=== PATIENT | male | born 1995 ===

== ENCOUNTER 2020-09-28 09:34 | Emergency (ER) | payer BC ==
[~2020-09-28] VITALS: Ht 175.3 cm; Wt 82.6 kg
[2020-09-28] MEDS ORDERED: ONDANSETRON 2MG/ML, 2ML ONE (10:18)
[2020-09-28] MEDS ORDERED: LORazepam 2 MG/ML, 1ML ONE ×2 (10:18→11:01)
[2020-09-28] MEDS ORDERED: SODIUM CHLORIDE FLUSH 10ML SYR IVF ONE (10:30)
[2020-09-28] MEDS ORDERED: ONDANSETRON 2MG/ML, 2ML IVPush ONE (10:30)
[2020-09-28] MEDS ORDERED: LORazepam 2 MG/ML, 1ML IVPush ONE (10:30)
[2020-09-28] MEDS ORDERED: SODIUM CHLORIDE 0.9% 1,000ML IVBOLUS ONE ×2 (10:30→12:30)
[2020-09-28] MEDS ORDERED: THIAMINE 100MG TABLET PO ONE (10:30)
[2020-09-28] MEDS ORDERED: LORazepam 2 MG/ML, 1ML IVPush PRN (10:30)
[2020-09-28 10:33] LABS: BASOPHILS % (AUTO) 1 % (0-1); EOSINOPHILS % (AUTO) 0 % (1-7); LYMPHOCYTES % (AUTO) 17 % (22-44); MEAN CORPUSCULAR HEMOGLOBIN 31.3 pg (27.5-34.5); MEAN CORPUSCULAR HGB CONC 35.1 g/dL (33.2-36.2); MEAN PLATELET VOLUME 7.6 fL (7.4-10.4); MONOCYTES % (AUTO) 7 % (2-9); NEUTROPHILS % (AUTO) 76 % (42-75); PLATELET COUNT 285 x10^3/uL (130-400); RED BLOOD COUNT 5.57 x10^6/uL (4.38-5.82); RED CELL DISTRIBUTION WIDTH 13.1 % (9.4-14.8)
[2020-09-28 10:35] LABS: MD NO
[2020-09-28 10:42] LABS: ALANINE AMINOTRANSFERASE 48 U/L (12-78); ANION GAP 19 mmol/L (5-15); CALCIUM 8.9 mg/dL (8.5-10.1); CHLORIDE 94 mmol/L (98-107); CREATININE 1.31 mg/dL (0.7-1.3)
[2020-09-28 10:44] LABS: ALKALINE PHOSPHATASE 95 U/L (45-117); BILIRUBIN,TOTAL 0.6 mg/dL (0.2-1.0); TOTAL PROTEIN 8.7 g/dL (6.4-8.2)
--- NOTE | 2020-09-28 10:44 | NUR ---
MEDICATED PER ORDERS. PT REPORTS DRINKING 2 PINTS/DAY. LAST DRINK 2 DAYS. PT TACHY AND TREMULOUS. NOT VOMITING. STATES HE THREW UP BLOOD. PIV, LABS, FLUIDS INFUSING.
[2020-09-28] MEDS ORDERED: THIAMINE 100MG TABLET ONE (10:54)
--- NOTE | 2020-09-28 11:19 | NUR ---
break RN note: CIWA score 13, pt medicated with ativan per emar. PO thiamine admin with sip of water, pt tolerated well. all monitors in place, sinus tach rate 130s with no ectopy. call light in reach. bed locked and in lowest position. pt instructed not to get out of bed, educated to utilize call light for any assistance, pt verbalizes understanding. pt a&o, resps even and unlabored, tolerating POs well. report given back to primary RN [facility].
[2020-09-28] MEDS ORDERED: DIAZEPAM 5 MG/ML, 2ML IV ONE (11:30)
[2020-09-28] MEDS ORDERED: DIAZEPAM 5 MG/ML, 2ML ONE (12:11)
--- NOTE | 2020-09-28 12:30 | NUR ---
MEDICATED PER ORDERS. PT GIVEN JUICE. PT TREMULOUS
--- NOTE | 2020-09-28 13:00 | NUR ---
PT TO BE DC. PT FEELING BETTER, LESS TREMULOUS
[2020-09-28] MEDS ORDERED: LORazepam 1MG TABLET ONE (13:29)
[2020-09-28] MEDS ORDERED: LORazepam 1MG TABLET PO ONE (13:30)
[2020-09-28 13:37] VITALS: BP 135/91
--- NOTE | 2020-09-28 13:38 | NUR ---
Patient/Caregiver given discharge instructions and they have confirmed that they understand the instructions. Patient ambulatory with steady gait.
== END 2020-09-28 13:40 | disposition home or self-care (01) ==
LOC: ED 12:19
DX: R11.2 Nausea with vomiting, unspecified (principal); F10.239 Alcohol dependence with withdrawal, unspecified; R10.84 Generalized abdominal pain; Y90.0 Blood alcohol level of less than 20 mg/100 ml
CPT/HCPCS: 36415; 80053; 80320; 83690; 85025; 96361; 96374; 96375; 96376; 99284; J2060; J2405; J3360; J7030; G0480

== ENCOUNTER 2020-10-06 16:18 | Inpatient (IN) | payer OTHER ==
[~2020-10-06] VITALS: Ht 180.3 cm; Wt 87.0 kg
[2020-10-06] MEDS ORDERED: SODIUM CHLORIDE 0.9% 1,000ML IVBOLUS ONE (16:30)
[2020-10-06] MEDS ORDERED: SODIUM CHLORIDE FLUSH 10ML SYR IVF ONE (16:30)
[2020-10-06] MEDS ORDERED: THIAMINE 100 MG in SODIUM CHLORIDE 0.9% 50 ML IVPB ONE (16:30)
[2020-10-06] MEDS ORDERED: SODIUM CHLORIDE 0.9% 1,000 ML IV ONE (16:30)
[2020-10-06] MEDS ORDERED: LORazepam 2 MG/ML, 1ML ONE ×4 (16:42→19:40)
[2020-10-06] MEDS: LORazepam 2 MG/ML, 1ML IVPush PRN ×4 (16:44→19:46)
--- NOTE | 2020-10-06 16:54 | NUR ---
PATIENT HERE WITH ETOH, REPORTS HE DRINKS 1 LITER OF ALCOHOL PER DAY, LAST DRINK 24 HOURS AGO. PATIENT SHAKING, MEDICATED PER eMAR, SIDE RAILS UP X2, SEIZURE PRECAUTIONS IN PLACE. PATIENT CONNECTED TO MONITORS.
[2020-10-06 16:56] LABS: ALANINE AMINOTRANSFERASE 52 U/L (12-78); ALBUMIN 3.3 g/dL (3.4-5.0); ANION GAP 14 mmol/L (5-15); CALCIUM 7.6 mg/dL (8.5-10.1); CHLORIDE 94 mmol/L (98-107); CREATININE 1.13 mg/dL (0.7-1.3)
[2020-10-06 17:09] LABS: ALKALINE PHOSPHATASE 102 U/L (45-117); BILIRUBIN,TOTAL 0.8 mg/dL (0.2-1.0); TOTAL PROTEIN 7.7 g/dL (6.4-8.2)
[2020-10-06 17:13] LABS: BASOPHILS % (AUTO) 1 % (0-1); EOSINOPHILS % (AUTO) 0 % (1-7); LYMPHOCYTES % (AUTO) 23 % (22-44); MEAN CORPUSCULAR HEMOGLOBIN 31.8 pg (27.5-34.5); MEAN PLATELET VOLUME 7.4 fL (7.4-10.4); MONOCYTES % (AUTO) 12 % (2-9); NEUTROPHILS % (AUTO) 64 % (42-75); PLATELET COUNT 342 x10^3/uL (130-400); RED BLOOD COUNT 5.95 x10^6/uL (4.38-5.82); RED CELL DISTRIBUTION WIDTH 13.4 % (9.4-14.8)
[2020-10-06 17:14] LABS: MD NO
--- NOTE | 2020-10-06 17:29 | NUR ---
THIAMINE IV BAG REQUESTED FROM PHARMACY.
--- NOTE | 2020-10-06 17:41 | NUR ---
SPOKE WITH PHARMACY ABOUT THIAMINE BAG REQUEST, PHARMACY WILL SEND MEDICATION NOW. PATIENT REQUESTING MORE ATIVAN.
[2020-10-06] MEDS ORDERED: POTASSIUM CHLORIDE 40 MEQ in SODIUM CHLORIDE 0.9% 500 ML IV ONE (18:00)
[2020-10-06] MEDS ORDERED: POTASSIUM CHLORIDE 20 MEQ TAB.ER.PRT PO ONE ×2 (18:00→21:30)
[2020-10-06] MEDS ORDERED: POTASSIUM CHLORIDE 20 MEQ TAB.ER.PRT ONE (18:06)
--- NOTE | 2020-10-06 18:20 | NUR ---
PATIENT MEDICATED PER eMAR, MORE APPLE JUICE PROVIDED TO PATIENT, NADN, PATIENT SINUS TACH ON MONITOR, OTHER VSS, A&O X4, SIDE RAILS UP X2, SEIZURE PRECAUTIONS IN PLACE, CALL LIGHT WITHIN REACH.
--- NOTE | 2020-10-06 18:46 | NUR ---
REPORT TO WILFREDO RODRIGUEZ FOR TRANSFER OF PATIENT CARE.
--- NOTE | 2020-10-06 19:19 | NUR ---
PATIENT RESTING IN BED IN NAD. ATIVAN ADMINISTERED PRIOR TO PREVIOUS RN LEAVING SHIFT. PATIENT REMAINS TACHYCARDIC. WILL CONTIUE TO MONITOR. SAFETY MAINTAINED. SEIZURE PADS REMAIN ON BED RAILS FOR SAFETY
[2020-10-06] MEDS ORDERED: ONDANSETRON ODT 4 MG PO ONE (20:00)
[2020-10-06] MEDS ORDERED: LORazepam 2 MG/ML, 1ML IVPush PRN (20:00)
--- NOTE | 2020-10-06 20:15 | NUR ---
PATIENT PROVIDED H20 AND APPLE JUICE. PATIENT RESTING IN BED IN NAD. CALL GRIFFIN IN REACH. VS REMAIN STABLE OTHER THAN PATIENT IS CURRENTLY TACHYCARDIC
--- NOTE | 2020-10-06 20:35 | NUR ---
REPOTR GIVEN TO CARI VILLALOBOS ON TELE UNIT
[2020-10-06 21:21] VITALS: BP 140/95
[2020-10-06] MEDS ORDERED: PROMETHAZINE 25MG TABLET PO PRN (21:30)
[2020-10-06] MEDS ORDERED: CHLORDIAZEPOXIDE 25 MG CAPSULE PO PRN ×2 (21:30)
[2020-10-06] MEDS ORDERED: LORazepam 2 MG/ML, 1ML IV PRN (21:30)
[2020-10-06] MEDS ORDERED: FOLIC ACID 5 MG/ML IM ONE (21:30)
[2020-10-06] MEDS: DIAZEPAM 10 MG TABLET PO SCH (22:21)
[2020-10-06] MEDS: ENOXAPARIN 40 MG/0.4 ML SQ SCH (22:22)
[2020-10-06] MEDS: SODIUM CHLORIDE 0.9% 1,000 ML IV SCH (22:40)
[2020-10-06] MEDS ORDERED: FOLIC ACID 1 MG TABLET PO ONE (23:00)
[2020-10-06] MEDS: CHLORDIAZEPOXIDE 10 MG CAPSULE PO PRN (23:19)
[2020-10-07] MEDS: ONDANSETRON 2MG/ML, 2ML IV PRN ×2 (02:55→09:15)
[2020-10-07] MEDS: CHLORDIAZEPOXIDE 25 MG CAPSULE PO PRN ×3 (02:56→12:25)
[2020-10-07 03:04] VITALS: BP 163/93
[2020-10-07] MEDS: DIAZEPAM 10 MG TABLET PO SCH ×4 (04:24→20:11)
[2020-10-07 04:48] LABS: BASOPHILS % (AUTO) 1 % (0-1); EOSINOPHILS % (AUTO) 0 % (1-7); LYMPHOCYTES % (AUTO) 27 % (22-44); MEAN CORPUSCULAR HEMOGLOBIN 31.7 pg (27.5-34.5); MEAN CORPUSCULAR HGB CONC 34.6 g/dL (33.2-36.2); MEAN PLATELET VOLUME 7.2 fL (7.4-10.4); MONOCYTES % (AUTO) 14 % (2-9); NEUTROPHILS % (AUTO) 59 % (42-75); PLATELET COUNT 273 x10^3/uL (130-400); RED BLOOD COUNT 4.64 x10^6/uL (4.38-5.82); RED CELL DISTRIBUTION WIDTH 13.1 % (9.4-14.8)
[2020-10-07 04:56] LABS: ANION GAP 7 mmol/L (5-15); CALCIUM 6.9 mg/dL (8.5-10.1); CHLORIDE 101 mmol/L (98-107); CREATININE 0.92 mg/dL (0.7-1.3)
[2020-10-07 05:02] LABS: MD NO
[2020-10-07] MEDS: SODIUM CHLORIDE 0.9% 1,000 ML IV SCH ×3 (05:45→22:00)
[2020-10-07] MEDS: CHLORDIAZEPOXIDE 10 MG CAPSULE PO PRN (05:46)
[2020-10-07] MEDS: MULTIVITAMINS/MINERALS TABLET PO SCH (08:20)
[2020-10-07] MEDS: MAGNESIUM CHLORIDE 64 MG TABLET.DR PO SCH ×3 (08:20→20:10)
[2020-10-07] MEDS: OMEPRAZOLE 20 MG CAPSULE.DR PO SCH (08:20)
[2020-10-07] MEDS: THIAMINE 100MG TABLET PO SCH (08:20)
[2020-10-07 08:28] LABS: AMPHETAMINE SCREEN, URINE Negative (Negative); BARBITURATE SCREEN, URINE Negative (Negative); BENZODIAZEPINE SCREEN, URINE Positive (Negative); CANNABINOID SCREEN, URINE Negative (Negative); COCAINE SCREEN, URINE Negative (Negative); METHADONE SCREEN, URINE Negative (Negative); OPIATE SCREEN, URINE Negative (Negative)
[2020-10-07 08:45] VITALS: BP 143/88
[2020-10-07] MEDS ORDERED: POTASSIUM CHLORIDE 20 MEQ TAB.ER.PRT PO ONE (11:30)
[2020-10-07] MEDS: FOLIC ACID 1 MG TABLET PO SCH (12:20)
[2020-10-07] MEDS ORDERED: LORazepam 1MG TABLET PO PRN ×2 (14:00)
[2020-10-07] MEDS ORDERED: LORazepam 2 MG/ML, 1ML IV PRN ×2 (14:00)
[2020-10-07] MEDS ORDERED: LORazepam 0.5MG TABLET PO PRN (14:00)
[2020-10-07] MEDS: LORazepam 2 MG/ML, 1ML IV PRN ×2 (14:24→23:15)
[2020-10-07 15:25] VITALS: BP 125/81
[2020-10-07 18:46] VITALS: BP 131/86
[2020-10-07] MEDS: ENOXAPARIN 40 MG/0.4 ML SQ SCH (20:11)
[2020-10-07] MEDS: LORazepam 1MG TABLET PO PRN (22:00)
[2020-10-08 01:57] VITALS: BP 125/82
[2020-10-08] MEDS: DIAZEPAM 10 MG TABLET PO SCH ×4 (03:24→21:54)
[2020-10-08] MEDS: SODIUM CHLORIDE 0.9% 1,000 ML IV SCH ×3 (05:28→21:07)
[2020-10-08 05:29] LABS: ALBUMIN 2.6 g/dL (3.4-5.0); ANION GAP 6 mmol/L (5-15); CALCIUM 7.3 mg/dL (8.5-10.1); CHLORIDE 104 mmol/L (98-107)
[2020-10-08 05:31] LABS: ALANINE AMINOTRANSFERASE 42 U/L (12-78); ALKALINE PHOSPHATASE 91 U/L (45-117); BILIRUBIN,TOTAL 1.3 mg/dL (0.2-1.0); CREATININE 0.88 mg/dL (0.7-1.3); TOTAL PROTEIN 5.9 g/dL (6.4-8.2)
[2020-10-08] MEDS: LORazepam 2 MG/ML, 1ML IV PRN ×3 (06:24→19:47)
[2020-10-08] MEDS ORDERED: POTASSIUM CHLORIDE 20 MEQ TAB.ER.PRT PO ONE (06:30)
[2020-10-08] MEDS ORDERED: POTASSIUM CHLORIDE 40 MEQ in SODIUM CHLORIDE 0.9% 500 ML IV ONE (06:30)
[2020-10-08 07:01] LABS: BASOPHILS % (AUTO) 1 % (0-1); EOSINOPHILS % (AUTO) 1 % (1-7); LYMPHOCYTES % (AUTO) 28 % (22-44); MEAN CORPUSCULAR HEMOGLOBIN 32.2 pg (27.5-34.5); MEAN PLATELET VOLUME 7.6 fL (7.4-10.4); MONOCYTES % (AUTO) 9 % (2-9); NEUTROPHILS % (AUTO) 62 % (42-75); PLATELET COUNT 269 x10^3/uL (130-400); RED BLOOD COUNT 4.47 x10^6/uL (4.38-5.82); RED CELL DISTRIBUTION WIDTH 12.8 % (9.4-14.8)
[2020-10-08 07:06] LABS: MD NO
[2020-10-08] MEDS: OMEPRAZOLE 20 MG CAPSULE.DR PO SCH (07:49)
[2020-10-08] MEDS: FOLIC ACID 1 MG TABLET PO SCH (07:50)
[2020-10-08] MEDS: MAGNESIUM CHLORIDE 64 MG TABLET.DR PO SCH ×4 (07:50→19:47)
[2020-10-08] MEDS: MULTIVITAMINS/MINERALS TABLET PO SCH ×2 (07:50→09:00)
[2020-10-08] MEDS: THIAMINE 100MG TABLET PO SCH (07:50)
[2020-10-08 08:32] VITALS: BP 139/99
[2020-10-08] MEDS ORDERED: THIAMINE 100 MG in DEXTROSE 5% 50 ML IVPB SCH (09:00)
[2020-10-08 14:00] VITALS: BP 124/82
[2020-10-08 19:22] VITALS: BP 133/86
[2020-10-08] MEDS: ENOXAPARIN 40 MG/0.4 ML SQ SCH (21:55)
[2020-10-09 02:00] VITALS: BP 127/82
[2020-10-09] MEDS: DIAZEPAM 10 MG TABLET PO SCH ×3 (03:46→14:56)
[2020-10-09] MEDS: SODIUM CHLORIDE 0.9% 1,000 ML IV SCH ×3 (05:12→22:56)
[2020-10-09] MEDS: ACETAMINOPHEN 325 MG TABLET PO PRN ×2 (05:12→21:53)
[2020-10-09 05:38] LABS: CALCIUM 7.7 mg/dL (8.5-10.1); CHLORIDE 106 mmol/L (98-107)
[2020-10-09 05:42] LABS: ANION GAP 7 mmol/L (5-15); CREATININE 0.97 mg/dL (0.7-1.3)
[2020-10-09] MEDS: LORazepam 2 MG/ML, 1ML IV PRN ×4 (06:43→22:41)
[2020-10-09] MEDS: OMEPRAZOLE 20 MG CAPSULE.DR PO SCH (06:43)
[2020-10-09] MEDS ORDERED: POTASSIUM CHLORIDE 40 MEQ in SODIUM CHLORIDE 0.9% 500 ML IV ONE (07:30)
[2020-10-09] MEDS ORDERED: POTASSIUM CHLORIDE 20 MEQ TAB.ER.PRT PO ONE (07:30)
[2020-10-09] MEDS: THIAMINE 100MG TABLET PO SCH (08:55)
[2020-10-09] MEDS: MAGNESIUM CHLORIDE 64 MG TABLET.DR PO SCH ×3 (08:55→20:08)
[2020-10-09] MEDS: MULTIVITAMINS/MINERALS TABLET PO SCH (08:56)
[2020-10-09] MEDS: FOLIC ACID 1 MG TABLET PO SCH (08:56)
[2020-10-09 09:29] VITALS: BP 141/94
[2020-10-09 13:29] VITALS: BP 121/87
[2020-10-09 18:54] VITALS: BP 145/95
[2020-10-09] MEDS: ENOXAPARIN 40 MG/0.4 ML SQ SCH (21:54)
[2020-10-09] MEDS: ONDANSETRON 2MG/ML, 2ML IV PRN (22:41)
[2020-10-10 00:40] VITALS: BP 146/92
[2020-10-10] MEDS: LORazepam 2 MG/ML, 1ML IV PRN ×4 (03:05→15:23)
[2020-10-10 05:35] LABS: BASOPHILS % (AUTO) 1 % (0-1); EOSINOPHILS % (AUTO) 2 % (1-7); LYMPHOCYTES % (AUTO) 36 % (22-44); MEAN CORPUSCULAR HEMOGLOBIN 32.3 pg (27.5-34.5); MEAN CORPUSCULAR HGB CONC 34.6 g/dL (33.2-36.2); MONOCYTES % (AUTO) 12 % (2-9); NEUTROPHILS % (AUTO) 49 % (42-75); PLATELET COUNT 284 x10^3/uL (130-400); RED CELL DISTRIBUTION WIDTH 13.1 % (9.4-14.8)
[2020-10-10 05:36] LABS: MD NO
[2020-10-10 05:49] LABS: ANION GAP 6 mmol/L (5-15); CALCIUM 8.5 mg/dL (8.5-10.1); CHLORIDE 103 mmol/L (98-107)
[2020-10-10 06:25] VITALS: BP 124/88
[2020-10-10] MEDS: OMEPRAZOLE 20 MG CAPSULE.DR PO SCH (06:28)
[2020-10-10] MEDS: SODIUM CHLORIDE 0.9% 1,000 ML IV SCH ×3 (06:28→22:04)
[2020-10-10] MEDS: ONDANSETRON 2MG/ML, 2ML IV PRN (09:25)
[2020-10-10] MEDS: MULTIVITAMINS/MINERALS TABLET PO SCH (09:26)
[2020-10-10] MEDS: THIAMINE 100MG TABLET PO SCH (09:26)
[2020-10-10] MEDS: FOLIC ACID 1 MG TABLET PO SCH (09:26)
[2020-10-10 12:55] VITALS: BP 120/84
[2020-10-10] MEDS: LORazepam 0.5MG TABLET PO SCH ×2 (17:23→22:03)
[2020-10-10 19:49] VITALS: BP 120/81
[2020-10-10] MEDS: ACETAMINOPHEN 325 MG TABLET PO PRN (22:03)
[2020-10-10] MEDS: MELATONIN 5 MG TABLET PO PRN (22:03)
[2020-10-10] MEDS: ENOXAPARIN 40 MG/0.4 ML SQ SCH (22:04)
[2020-10-11 01:15] VITALS: BP 136/93
[2020-10-11] MEDS: LORazepam 1MG TABLET PO PRN ×2 (02:46→14:34)
[2020-10-11] MEDS: ACETAMINOPHEN 325 MG TABLET PO PRN (02:46)
[2020-10-11 05:30] LABS: BASOPHILS % (AUTO) 1 % (0-1); EOSINOPHILS % (AUTO) 2 % (1-7); LYMPHOCYTES % (AUTO) 40 % (22-44); MEAN CORPUSCULAR HEMOGLOBIN 32.1 pg (27.5-34.5); MEAN CORPUSCULAR HGB CONC 34.6 g/dL (33.2-36.2); MEAN PLATELET VOLUME 6.9 fL (7.4-10.4); MONOCYTES % (AUTO) 12 % (2-9); NEUTROPHILS % (AUTO) 45 % (42-75); PLATELET COUNT 313 x10^3/uL (130-400); RED BLOOD COUNT 4.39 x10^6/uL (4.38-5.82); RED CELL DISTRIBUTION WIDTH 13.3 % (9.4-14.8)
[2020-10-11 05:33] LABS: MD NO
[2020-10-11 05:44] LABS: ANION GAP 3 mmol/L (5-15); CALCIUM 8.7 mg/dL (8.5-10.1); CHLORIDE 105 mmol/L (98-107)
[2020-10-11 05:45] LABS: CREATININE 0.89 mg/dL (0.7-1.3)
[2020-10-11] MEDS: LORazepam 0.5MG TABLET PO SCH ×3 (05:58→20:34)
[2020-10-11] MEDS: SODIUM CHLORIDE 0.9% 1,000 ML IV SCH ×3 (05:58→22:03)
[2020-10-11] MEDS: OMEPRAZOLE 20 MG CAPSULE.DR PO SCH (05:58)
[2020-10-11 08:25] VITALS: BP 127/80
[2020-10-11] MEDS: MULTIVITAMINS/MINERALS TABLET PO SCH (08:42)
[2020-10-11] MEDS: FOLIC ACID 1 MG TABLET PO SCH (08:42)
[2020-10-11] MEDS: THIAMINE 100MG TABLET PO SCH (08:42)
[2020-10-11 13:47] VITALS: BP 120/82
[2020-10-11] MEDS ORDERED: LORazepam 0.5MG TABLET PO SCH (16:00)
[2020-10-11] MEDS ORDERED: GABAPENTIN 300 MG CAPSULE PO SCH (16:00)
[2020-10-11 16:07] VITALS: BP 140/83
[2020-10-11] MEDS: GABAPENTIN 300 MG CAPSULE PO SCH ×2 (16:15→20:34)
[2020-10-11 16:45] LABS: FREE T4 (FREE THYROXINE) 0.9 ng/dL (0.76-1.46)
[2020-10-11] MEDS: ENOXAPARIN 40 MG/0.4 ML SQ SCH (20:35)
[2020-10-11 20:39] VITALS: BP 134/88
[2020-10-11] MEDS: MELATONIN 5 MG TABLET PO PRN (22:09)
[2020-10-12] MEDS: LORazepam 1MG TABLET PO PRN ×2 (00:11→04:26)
[2020-10-12 00:27] VITALS: BP 133/89
[2020-10-12] MEDS: SODIUM CHLORIDE 0.9% 1,000 ML IV SCH ×2 (05:47→14:00)
[2020-10-12 07:08] VITALS: BP 137/91
[2020-10-12] MEDS: LORazepam 0.5MG TABLET PO SCH ×2 (08:55→16:03)
[2020-10-12] MEDS: THIAMINE 100MG TABLET PO SCH (08:56)
[2020-10-12] MEDS: GABAPENTIN 300 MG CAPSULE PO SCH (08:56)
[2020-10-12] MEDS: FOLIC ACID 1 MG TABLET PO SCH (08:56)
[2020-10-12] MEDS: MULTIVITAMINS/MINERALS TABLET PO SCH (08:56)
[2020-10-12] MEDS: OMEPRAZOLE 20 MG CAPSULE.DR PO SCH (08:56)
[2020-10-12] MEDS ORDERED: GABA300C PO (12:33)
[2020-10-12] MEDS: PROPRANOLOL 10 MG TABLET PO SCH ×2 (12:33→17:03)
[2020-10-12] MEDS ORDERED: PROP10TA16 PO (12:33)
[2020-10-12] MEDS ORDERED: FOLI1TAB32 PO (12:33)
[2020-10-12] MEDS ORDERED: MULT-484 PO (12:33)
[2020-10-12] MEDS ORDERED: THIA100T67 PO (12:33)
[2020-10-12] MEDS ORDERED: LORA-445 PO (12:33)
[2020-10-12 13:24] VITALS: BP 145/93
== END 2020-10-12 18:05 | disposition home or self-care (01) | DRG 392 ==
LOC: ED 16:48 → EDIP 20:02 → 4WST 21:09 → 4EST 21:59
PROVIDERS: ADMIT Family Medicine; ATTEND Internal Medicine
DX: K29.20 Alcoholic gastritis without bleeding (principal); F10.239 Alcohol dependence with withdrawal, unspecified; F13.20 Sedative, hypnotic or anxiolytic dependence, uncomplicated; I47.1 Supraventricular tachycardia; E87.6 Hypokalemia; D75.1 Secondary polycythemia; E86.0 Dehydration; F32.9 Major depressive disorder, single episode, unspecified; F41.0 Panic disorder [episodic paroxysmal anxiety]; F41.1 Generalized anxiety disorder; Z82.49 Family history of ischemic heart disease and other diseases of the circulatory system; Z79.899 Other long term (current) drug therapy; Z81.8 Family history of other mental and behavioral disorders
CPT/HCPCS: 36415; 96365; 99285; Q0169; 80048; 80053; 80307; 80320; 82962; 83690; 83735; 84100; 84439; 84443; 84481; 85025; 93005; G0378; J1650; J2405; J3411; J3480; Q0162; G0480; J2060; J7030; J7040

== ENCOUNTER 2021-01-09 00:28 | Inpatient (IN) | payer MEDICAID ==
[~2021-01-09] VITALS: Ht 180.3 cm; Wt 89.3 kg
[~2021-01-09 00:28] MED LIST: FOLI1TAB32 PO; GABA300C PO; LORA-445 PO; MULT-484 PO; PROP10TA16 PO; THIA100T67 PO
[2021-01-09] MEDS ORDERED: LORazepam 2 MG/ML, 1ML ONE ×6 (00:41→04:08)
[2021-01-09] MEDS ORDERED: SODIUM CHLORIDE 0.9% 1,000ML IVBOLUS ONE (01:00)
[2021-01-09] MEDS ORDERED: LORazepam 2 MG/ML, 1ML IVPush ONE ×2 (01:00→02:30)
[2021-01-09] MEDS ORDERED: SODIUM CHLORIDE FLUSH 10ML SYR IVF ONE (01:00)
[2021-01-09] MEDS ORDERED: ONDANSETRON 2MG/ML, 2ML IVPush ONE (01:00)
[2021-01-09] MEDS ORDERED: ONDANSETRON 2MG/ML, 2ML ONE (01:03)
[2021-01-09 01:08] LABS: BASOPHILS % (AUTO) 1 % (0-1); EOSINOPHILS % (AUTO) 1 % (1-7); LYMPHOCYTES % (AUTO) 27 % (22-44); MEAN CORPUSCULAR HEMOGLOBIN 32.4 pg (27.5-34.5); MEAN PLATELET VOLUME 7.3 fL (7.4-10.4); MONOCYTES % (AUTO) 8 % (2-9); NEUTROPHILS % (AUTO) 63 % (42-75); PLATELET COUNT 314 x10^3/uL (130-400); RED BLOOD COUNT 5.22 x10^6/uL (4.38-5.82); RED CELL DISTRIBUTION WIDTH 12.7 % (9.4-14.8)
[2021-01-09] MEDS: LORazepam 2 MG/ML, 1ML IVPush PRN ×2 (01:08→01:48)
[2021-01-09 01:21] LABS: ALANINE AMINOTRANSFERASE 389 U/L (12-78); ALBUMIN 3.8 g/dL (3.4-5.0); ANION GAP 22 mmol/L (5-15); CALCIUM 7.9 mg/dL (8.5-10.1); CHLORIDE 102 mmol/L (98-107); CREATININE 1.21 mg/dL (0.7-1.3)
[2021-01-09 01:23] LABS: ALKALINE PHOSPHATASE 96 U/L (45-117); BILIRUBIN,TOTAL 0.5 mg/dL (0.2-1.0)
[2021-01-09] MEDS ORDERED: MAGNESIUM SULFATE 1 GM, THIAMINE 100 MG, FOLIC ACID 1 MG, MVI ADULT 10 ML in SODIUM CHL... IV ONE (01:23)
--- NOTE | 2021-01-09 02:04 | NUR ---
REPORT FROM KELLI VILLALOBOS. BANANA BAG RUNNING. PT GIVEN ICE CHIPS FOR DRY MOUTH. PT RESTING WITH NO NEEDS AT THIS TIME. WILL REASSESS NEED FOR MORE ATIVAN. CALL LIGHT IN REACH
--- NOTE | 2021-01-09 02:21 | NUR ---
ADMITTING MD AT BEDSIDE. PT MEDICATED WITH ATIVAN AND 2 L NC PLACED ON PT
[2021-01-09] MEDS ORDERED: ACETAMINOPHEN 325 MG TABLET PO PRN (02:30)
[2021-01-09] MEDS ORDERED: LABETALOL 5MG/ML, 20ML IVPush PRN (02:30)
[2021-01-09] MEDS ORDERED: KETOROLAC 30 MG/1 ML IV PRN (02:30)
[2021-01-09] MEDS ORDERED: LACTATED RINGERS 1,000 ML IV SCH ×2 (02:30→11:00)
[2021-01-09] MEDS ORDERED: CHLORDIAZEPOXIDE 25 MG CAPSULE PO SCH (02:30)
[2021-01-09] MEDS ORDERED: GUAIFENESIN/DM 200-20MG, 10ML UDC PO PRN (02:30)
[2021-01-09] MEDS ORDERED: THIAMINE 200 MG in DEXTROSE 5% 50 ML IVPB ONE (02:30)
[2021-01-09] MEDS ORDERED: FOLIC ACID 5 MG/ML IM ONE (02:30)
[2021-01-09] MEDS ORDERED: DOCUSATE 100 MG CAPSULE PO PRN (02:30)
[2021-01-09] MEDS ORDERED: LORazepam 2 MG/ML, 1ML IV PRN ×4 (02:30)
[2021-01-09] MEDS: LORazepam 2 MG/ML, 1ML IV PRN ×2 (02:58→04:12)
[2021-01-09] MEDS ORDERED: METOPROLOL 1 MG/ML, 5ML ONE (03:16)
--- NOTE | 2021-01-09 03:23 | NUR ---
SPOKE TO ADMITTING MD ABOUT PTS CONTINUED NEED FOR ATIVAN AND PTS HR IN 130'S-150'S WITH SMALL MOVEMENT. PT TO BE ADMITTED TO CCU. PT MEDICATED WITH METOPROLOL FOR HR. HR IMPROVED AFTER MEDICATION. PT SAYS HE HAS BEEN IN CCU FOR W/D IN PAST
[2021-01-09] MEDS ORDERED: METOPROLOL 1 MG/ML, 5ML IVPush ONE (03:30)
--- NOTE | 2021-01-09 03:42 | NUR ---
2ND PIV PLACED. PT RESTING. HR INCREASES WITH SLIGHT MOVEMENT. PT HAS NO NEEDS AT THIS TIME. CALL LIGHT IN REACH
[2021-01-09 04:13] LABS: BASOPHILS % (AUTO) 1 % (0-1); EOSINOPHILS % (AUTO) 1 % (1-7); LYMPHOCYTES % (AUTO) 29 % (22-44); MEAN CORPUSCULAR HEMOGLOBIN 32.5 pg (27.5-34.5); MEAN CORPUSCULAR HGB CONC 34.9 g/dL (33.2-36.2); MEAN PLATELET VOLUME 7.1 fL (7.4-10.4); MONOCYTES % (AUTO) 6 % (2-9); NEUTROPHILS % (AUTO) 64 % (42-75); PLATELET COUNT 289 x10^3/uL (130-400); RED BLOOD COUNT 4.99 x10^6/uL (4.38-5.82); RED CELL DISTRIBUTION WIDTH 12.4 % (9.4-14.8)
--- NOTE | 2021-01-09 04:14 | NUR ---
REPORT CALLED TO PEGGY VILLALOBOS. PT REMEDICATED FOR W/D.
[2021-01-09 04:26] LABS: ALANINE AMINOTRANSFERASE 403 U/L (12-78); ALBUMIN 3.6 g/dL (3.4-5.0); ANION GAP 16 mmol/L (5-15); CALCIUM 7.8 mg/dL (8.5-10.1); CHLORIDE 105 mmol/L (98-107); CREATININE 0.99 mg/dL (0.7-1.3)
[2021-01-09 04:28] LABS: ALKALINE PHOSPHATASE 95 U/L (45-117); BILIRUBIN,TOTAL 0.5 mg/dL (0.2-1.0); TOTAL PROTEIN 7.9 g/dL (6.4-8.2)
[2021-01-09] MEDS: ENOXAPARIN 40 MG/0.4 ML SQ SCH (04:53)
[2021-01-09] MEDS ORDERED: PROPRANOLOL 10 MG TABLET PO SCH (06:00)
[2021-01-09] MEDS ORDERED: PROPRANOLOL 20 MG TABLET ONE (06:31)
[2021-01-09] MEDS ORDERED: SODIUM CHLORIDE 0.9% IV ONE ×2 (09:00→13:00)
[2021-01-09] MEDS ORDERED: PHENOBARBITAL ETOH DETOX PER PHARMACY MC PRN ×2 (09:00→17:05)
[2021-01-09] MEDS ORDERED: PHENOBARBITAL SODIUM IV ONE ×2 (09:00→13:00)
[2021-01-09] MEDS: METOPROLOL TARTRATE 25 MG TAB PO SCH ×3 (09:38→23:15)
[2021-01-09] MEDS: MULTIVITAMINS/MINERALS TABLET PO SCH (09:38)
[2021-01-09 12:29] LABS: INTERNATIONAL NORMALIZED RATIO 0.96 (0.93-1.1); PROTHROMBIN TIME 10.3 Seconds (9.6-11.5)
[2021-01-09] MEDS: PHENOBARBITAL SODIUM 65 MG/ML, 1ML IM SCH (19:43)
[2021-01-10] MEDS ORDERED: CHLORDIAZEPOXIDE 25 MG CAPSULE PO SCH (02:30)
[2021-01-10] MEDS: ENOXAPARIN 40 MG/0.4 ML SQ SCH (02:44)
[2021-01-10] MEDS: ONDANSETRON 2MG/ML, 2ML IVPush PRN (02:46)
[2021-01-10] MEDS: PHENOBARBITAL SODIUM 65 MG/ML, 1ML IM SCH ×2 (02:57→17:59)
[2021-01-10] MEDS: POTASSIUM CHLORIDE 20 MEQ, MAGNESIUM SULFATE 1 GM, FOLIC ACID 1 MG, THIAMINE 200 MG, MV... IV SCH (03:08)
[2021-01-10 04:00] VITALS: BP 116/82
[2021-01-10 04:23] LABS: ALANINE AMINOTRANSFERASE 417 U/L (12-78); ALBUMIN 3.3 g/dL (3.4-5.0); ANION GAP 8 mmol/L (5-15); CALCIUM 8.2 mg/dL (8.5-10.1); CHLORIDE 103 mmol/L (98-107); CREATININE 0.87 mg/dL (0.7-1.3)
[2021-01-10 04:25] LABS: ALKALINE PHOSPHATASE 91 U/L (45-117); BILIRUBIN,TOTAL 1.3 mg/dL (0.2-1.0); TOTAL PROTEIN 6.9 g/dL (6.4-8.2)
[2021-01-10] MEDS: METOPROLOL TARTRATE 25 MG TAB PO SCH ×3 (05:07→23:50)
[2021-01-10] MEDS ORDERED: POTASSIUM CHLORIDE 20 MEQ TAB.ER.PRT PO ONE (08:00)
[2021-01-10] MEDS: THIAMINE 200 MG in SODIUM CHLORIDE 0.9% 50 ML IV SCH (08:52)
[2021-01-10] MEDS: MULTIVITAMINS/MINERALS TABLET PO SCH (08:52)
[2021-01-10 19:05] VITALS: BP 129/85
[2021-01-11 01:33] VITALS: BP 112/76
[2021-01-11] MEDS: ENOXAPARIN 40 MG/0.4 ML SQ SCH (03:29)
[2021-01-11] MEDS: POTASSIUM CHLORIDE 20 MEQ, MAGNESIUM SULFATE 1 GM, FOLIC ACID 1 MG, THIAMINE 200 MG, MV... IV SCH (03:30)
[2021-01-11 04:51] LABS: ALANINE AMINOTRANSFERASE 377 U/L (12-78); ALKALINE PHOSPHATASE 94 U/L (45-117); BILIRUBIN,TOTAL 0.8 mg/dL (0.2-1.0); CREATININE 0.83 mg/dL (0.7-1.3)
[2021-01-11] MEDS: PHENOBARBITAL SODIUM 65 MG/ML, 1ML IM SCH (05:00)
[2021-01-11 05:06] LABS: ALBUMIN 3.2 g/dL (3.4-5.0); ANION GAP 8 mmol/L (5-15); CALCIUM 8.3 mg/dL (8.5-10.1); CHLORIDE 103 mmol/L (98-107)
[2021-01-11] MEDS ORDERED: POTASSIUM CHLORIDE 20 MEQ TAB.ER.PRT PO ONE (06:30)
[2021-01-11] MEDS: METOPROLOL TARTRATE 25 MG TAB PO SCH ×3 (06:35→23:54)
[2021-01-11 09:02] VITALS: BP 119/84
[2021-01-11] MEDS: PHENOBARBITAL 20 MG/5 ML ORAL SOL PO SCH ×2 (11:30→23:30)
[2021-01-11] MEDS: MULTIVITAMINS/MINERALS TABLET PO SCH (11:54)
[2021-01-11] MEDS: THIAMINE 200 MG in SODIUM CHLORIDE 0.9% 50 ML IV SCH (13:29)
[2021-01-11 13:30] VITALS: BP 104/67
[2021-01-11] MEDS ORDERED: PHENOBARBITAL 20 MG/5 ML ORAL SOL PO SCH (15:00)
[2021-01-11 16:49] VITALS: BP 125/79
[2021-01-11 19:16] VITALS: BP 120/78
[2021-01-11 23:47] VITALS: BP 133/76
[2021-01-12 00:09] VITALS: BP 136/92
[2021-01-12] MEDS: POTASSIUM CHLORIDE 20 MEQ, MAGNESIUM SULFATE 1 GM, FOLIC ACID 1 MG, THIAMINE 200 MG, MV... IV SCH (03:08)
[2021-01-12] MEDS: ENOXAPARIN 40 MG/0.4 ML SQ SCH (03:08)
[2021-01-12 08:45] VITALS: BP 120/84
[2021-01-12] MEDS: METOPROLOL TARTRATE 25 MG TAB PO SCH ×2 (09:56→15:00)
[2021-01-12] MEDS: THIAMINE 200 MG in SODIUM CHLORIDE 0.9% 50 ML IV SCH (09:56)
[2021-01-12] MEDS: ONDANSETRON 2MG/ML, 2ML IVPush PRN (09:56)
[2021-01-12] MEDS: MULTIVITAMINS/MINERALS TABLET PO SCH (09:57)
[2021-01-12] MEDS ORDERED: METO25TA35 PO (11:11)
[2021-01-12] MEDS: PHENOBARBITAL 20 MG/5 ML ORAL SOL PO SCH (11:40)
[2021-01-12 12:52] VITALS: BP 131/89
[2021-01-13] MEDS ORDERED: PHENOBARBITAL 20 MG/5 ML ORAL SOL PO SCH ×2 (11:30→17:00)
[2021-01-14] MEDS ORDERED: PHENOBARBITAL 20 MG/5 ML ORAL SOL PO SCH ×2 (11:30→17:00)
== END 2021-01-12 16:05 | disposition home or self-care (01) | DRG 433 ==
LOC: ED 00:43 → EDIP 02:33 → CCU 04:21 → 4EST 01-10 16:54 → DCLOUNGE 01-12 16:00
PROVIDERS: ADMIT Internal Medicine; ATTEND Internal Medicine
DX: K70.10 Alcoholic hepatitis without ascites (principal); E87.2 Acidosis; F10.239 Alcohol dependence with withdrawal, unspecified; F13.239 Sedative, hypnotic or anxiolytic dependence with withdrawal, unspecified; E83.51 Hypocalcemia; E86.0 Dehydration; F10.229 Alcohol dependence with intoxication, unspecified; F17.210 Nicotine dependence, cigarettes, uncomplicated; Y90.8 Blood alcohol level of 240 mg/100 ml or more; R00.0 Tachycardia, unspecified; F41.9 Anxiety disorder, unspecified; R74.01 Elevation of levels of liver transaminase levels
CPT/HCPCS: 36415; 96361; 96374; 96375; 99285; J7121; 76700; 80053; 80320; 83690; 83735; 84100; 85025; 85610; 87081; 93005; G0378; J1650; J2405; J2560; J3411; J3475; J3480; G0480; J2060; J7030; J7120

== ENCOUNTER 2021-03-23 22:47 | Emergency (ER) | payer MEDICAID ==
[~2021-03-23] VITALS: Ht 180.3 cm; Wt 88.3 kg
[~2021-03-23 22:47] MED LIST changes: +METO25TA35 PO
[2021-03-23 23:36] LABS: BASOPHILS % (AUTO) 0 % (0-1); EOSINOPHILS % (AUTO) 0 % (1-7); LYMPHOCYTES % (AUTO) 45 % (22-44); MEAN CORPUSCULAR HEMOGLOBIN 31.5 pg (27.5-34.5); MEAN CORPUSCULAR HGB CONC 35.1 g/dL (33.2-36.2); MEAN PLATELET VOLUME 7.5 fL (7.4-10.4); MONOCYTES % (AUTO) 7 % (2-9); NEUTROPHILS % (AUTO) 48 % (42-75); PLATELET COUNT 419 x10^3/uL (130-400); RED BLOOD COUNT 5.56 x10^6/uL (4.38-5.82); RED CELL DISTRIBUTION WIDTH 12.9 % (9.4-14.8)
[2021-03-23 23:38] LABS: ALBUMIN 4.2 g/dL (3.4-5.0); ANION GAP 12 mmol/L (5-15); CALCIUM 9.1 mg/dL (8.5-10.1); CHLORIDE 104 mmol/L (98-107)
[2021-03-23 23:44] LABS: ALANINE AMINOTRANSFERASE 36 U/L (12-78); ALKALINE PHOSPHATASE 89 U/L (45-117); BILIRUBIN,TOTAL 0.5 mg/dL (0.2-1.0); CREATININE 1.18 mg/dL (0.7-1.3); TOTAL PROTEIN 8.7 g/dL (6.4-8.2)
--- NOTE | 2021-03-23 23:56 | NUR ---
PT C/O OF ETOH AND BENZO WITHDRAWALS. PT STATES HE HAS NOT TAKEN HIS RX IN A COUPLE DAYS. PT STATED HE BEGAN TO DRINK ETOH TO HELP BUT HAS NOT DRANK SINCE YESTERDAY. ATTACHED TO CARD/SP02/BP MONITORS, VSS WITH ELEVATED HR. BED IN LOW, CHANGED INTO GOWN, RAILS ENGAGED, CALL LIGHT ON LAP ERMD AT [facility] FOR EVAL.
[2021-03-24] MEDS ORDERED: hydrOXyzine 50MG TABLET ONE (00:17)
[2021-03-24 00:19] VITALS: BP 117/57
[2021-03-24] MEDS ORDERED: hydrOXyzine 50MG TABLET PO ONE (00:30)
--- NOTE | 2021-03-24 00:39 | NUR ---
Patient/Caregiver given discharge instructions and they have confirmed that they understand the instructions. Patient ambulatory with steady gait. NAD, all questions answered appropriately, denies additional needs at this time. No personal belongings left in room after discharge. PT GIVEN TAXI VOUCHER FOR SAFE DC. PT AGGRESIVE WITH STAFF AND REGISTRATION
== END 2021-03-24 00:41 | disposition home or self-care (01) ==
LOC: ED 22:52
DX: F10.120 Alcohol abuse with intoxication, uncomplicated (principal); F17.200 Nicotine dependence, unspecified, uncomplicated; Z72.9 Problem related to lifestyle, unspecified; Y90.0 Blood alcohol level of less than 20 mg/100 ml
CPT/HCPCS: 36415; 80053; 80320; 85025; 99283; G0480

== ENCOUNTER 2021-03-25 23:00 | Emergency (ER) | payer MEDICAID ==
[~2021-03-25] VITALS: Ht 180.3 cm; Wt 86.0 kg
[2021-03-25 23:01] VITALS: BP 148/92
--- NOTE | 2021-03-26 02:53 | NUR ---
NIL X 1
--- NOTE | 2021-03-26 03:12 | NUR ---
NIL X 2
--- NOTE | 2021-03-26 03:24 | NUR ---
NIL X 3
[2021-03-26] MEDS ORDERED: CLON2TAB PO (14:04)
== END 2021-03-26 03:26 | disposition left against medical advice (07) ==
LOC: ED 23:30
DX: F10.239 Alcohol dependence with withdrawal, unspecified (principal); R94.31 Abnormal electrocardiogram [ECG] [EKG]; Z91.14 Patient's other noncompliance with medication regimen; Y90.0 Blood alcohol level of less than 20 mg/100 ml
CPT/HCPCS: 93005; 99283

== ENCOUNTER 2021-03-26 13:13 | Emergency (ER) | payer MEDICAID ==
[~2021-03-26] VITALS: Ht 180.3 cm; Wt 82.0 kg
[2021-03-26] MEDS ORDERED: CLON2TAB PO (14:04)
--- NOTE | 2021-03-26 14:04 | NUR ---
ASSUMED CARE OF PATIENT. PATIENT REPORTS HE IS WITHDRAWING FROM KLONOPIN AND ETOH. LAST DRINK 10 HOURS AGO. PT REPORTS SOME ANXIETY. VS STABLE. WET ROOM WORKER ON. SINUS TACH NOTED. CALL LIGHT IN PLACE. WILL CONTINUE TO MONITOR.
--- NOTE | 2021-03-26 14:39 | NUR ---
PT SEEN BY DR BROWN
[2021-03-26] MEDS ORDERED: LORazepam 2 MG/ML, 1ML ONE (14:44)
[2021-03-26] MEDS ORDERED: LORazepam 2 MG/ML, 1ML IVPush PRN (15:00)
[2021-03-26] MEDS ORDERED: SODIUM CHLORIDE FLUSH 10ML SYR IVF ONE (15:00)
[2021-03-26] MEDS ORDERED: CHLORDIAZEPOXIDE 25 MG CAPSULE PO PRN (15:00)
[2021-03-26] MEDS ORDERED: SODIUM CHLORIDE 0.9% 1,000ML IVBOLUS ONE (15:00)
--- NOTE | 2021-03-26 15:21 | NUR ---
AFTER PT WAS GIVEN ATIVAN, PULSE OX WENT TO 84% RA. DR BROWN AWARE. PT PUT ON 2L NC, PT NOW 95% RA. VS STABLE. SCRAP COLLECTOR ON. SINUS TACH NOTED. PHARMACY CALLED NO 25 MG LIBRIUM. PT IS A&O X4. PT REPORTS HE IS FEELING LESS ANXIOUS. CALL LIGHT IN PLACE WILL CONTINUE TO MONITOR.
--- NOTE | 2021-03-26 16:01 | NUR ---
dr arriola has seen patient. Provider aware of vs. Pt ready for dc.
--- NOTE | 2021-03-26 16:21 | NUR ---
PT IS A&O X4. VS STABLE. PROVIDER AWARE OF VS AT TIME OF DISCHARGE. OKAYED BY DR BROWN. PT GIVEN A TAXI VOUCHER HOME. MEDICATION TEACHING DONE. PT DISCHARGED.
[2021-03-26 16:22] VITALS: BP 139/92
== END 2021-03-26 16:24 | disposition home or self-care (01) ==
LOC: ED 14:22
DX: F11.23 Opioid dependence with withdrawal (principal); R00.0 Tachycardia, unspecified
CPT/HCPCS: 93005; 96361; 96374; 99283; J2060; J7030

== ENCOUNTER 2021-03-29 13:07 | Emergency (ER) | payer MEDICAID ==
[~2021-03-29] VITALS: Ht 180.3 cm; Wt 82.0 kg
[2021-03-29 18:49] VITALS: BP 133/90
== END 2021-03-29 19:11 | disposition home or self-care (01) ==
LOC: ED 17:59
DX: F13.139 Sedative, hypnotic or anxiolytic abuse with withdrawal, unspecified (principal); F41.1 Generalized anxiety disorder; R11.2 Nausea with vomiting, unspecified; Y90.9 Presence of alcohol in blood, level not specified